=== PATIENT | male | born 1970 | race African-American/Black ===

== ENCOUNTER 2020-09-21 05:32 | Day surgery (SDC) | payer OTHER ==
[~2020-09-21] VITALS: Ht 170.2 cm; Wt 87.1 kg
--- NOTE | ~2020-09-21 | OP ---
PATIENT NAME: CASTRO CUELLO MEDICAL RECORD: [id number] :66 LOCATION:D.OPS ADMISSION DATE: SURGEON: BRYCE MULLER MD DATE OF OPERATION: 09/21/2020 PRINCIPAL DIAGNOSIS: Lipoma of the right posterior back, it measures 13 cm x 16 cm. POSTOPERATIVE DIAGNOSIS: Lipoma of the right posterior back, it measures 13 cm x 16 cm. PROCEDURE: Resection of large lipoma of the right back. SURGEON: Bryce Muller MD AIRBRUSH ARTIST TECHNICAL: None. BLOOD LOSS: Minimal. ANESTHESIA: General. COMPLICATIONS: None. I specifically discussed with the patient the 1 in 10 chance that the lipoma could recur and the chance that the lipoma could actually represent a lipomatous malignancy such as a liposarcoma. DESCRIPTION OF PROCEDURE: The patient was conveyed to the operating room electively on 09/21/2020. General anesthesia was induced by the anesthesia staff. The patient was positioned prone. The back was sterilely prepped and draped. A transverse incision was accomplished over the lipoma. I dissected down to the lipomatous tissue, which was freed up bluntly. I then extirpated the lipoma by squeezing out through the small incision. Some additional connective tissue was excised in a piecemeal fashion in order to prevent the lipoma from recurring. I noted no residual lipomatous tissue within the cavity. Meticulous hemostasis was achieved with electrocautery. I irrigated with normal saline. Marimar was added to the cavity for additional hemostasis. The deep adipose tissue was closed with interrupted 3-0 Vicryl. Subcutaneous adipose tissue was closed with interrupted 3-0 Vicryl. Skin was closed with a running intracuticular 3-0 Vicryl. Dermabond was then applied. The patient was then extubated and conveyed to post-anesthesia care unit where he was in stable condition. There is no need for him to follow up with me in the office unless he develops a complication related to this operative procedure. If he needs to be seen postoperatively, I could see him during one of my GI clinic days out at the half-way. TRANSINT:[id number] Voice Confirmation ID: [id number] DOCUMENT ID: [id number] OPERATIVE REPORT [id number] CUATEBRYCE CHRIS MD CC: AMERICA RUIZ MD [id number] DICTATION DATE: 09/22/20 1056 RAILWAY SWITCH OPERATOR: 09/22/20 1546 [facility] [place] 09/21/20 [id number] [place] [address]
[2020-09-21] MEDS ORDERED: MOBIC7.5 MG PO (05:55)
[2020-09-21] MEDS ORDERED: NORVASC10 MG PO (05:56)
[2020-09-21] MEDS ORDERED: ACETAMINOPHEN500 M1 PO (05:56)
[2020-09-21] MEDS ORDERED: ULTRAM50 MG PO (05:57)
[2020-09-21] MEDS ORDERED: CYMBALTA60 MG PO (05:57)
[2020-09-21] MEDS ORDERED: COREG25 MG PO (05:58)
[2020-09-21] MEDS ORDERED: ZOCOR20 MG PO (05:58)
[2020-09-21] MEDS ORDERED: CHLORTHALIDONE25 MG PO (05:59)
[2020-09-21] MEDS ORDERED: BACLOFEN20 M1 PO (06:01)
[2020-09-21 06:23] LABS: ANION GAP 8.6 mmol/L (8-16); CALCIUM 8.4 mg/dL (8.5-10.1); CARBON DIOXIDE 29.2 mmol/L (21.0-32.0); CREATININE - SERUM 1.2 mg/dL (0.6-1.3); POTASSIUM - SERUM 3.8 mmol/L (3.5-5.1)
[2020-09-21 06:27] VITALS: BP 166/102; Ht 170.2 cm; Wt 87.1 kg
[2020-09-21 06:48] LABS: BASOPHILS 0.2 % (0-2); EOSINOPHILS 2.6 % (0-7); HEMATOCRIT 39.1 % (42.0-54.0); HEMOGLOBIN 13.2 g/dL (13.5-17.5); IMMATURE GRANULOCYTES 0.2 % (0-5); LYMPHOCYTES 35.1 % (15-50); MCH 30.6 pg (26.0-34.0); MCHC 33.8 g/dL (31.0-37.0); MCV 90.5 fL (80.0-100.0); MEAN PLATELET VOLUME 8.2 fL (7.4-10.4); MONOCYTES 6.9 % (2-11); NEUTROPHIL ABS# 3.13 10x3/uL (1.78-5.38); PLATELET COUNT 278 10x3/uL (130-400); RBC 4.32 10x6/uL (4.20-6.10); RDW 12.7 % (11.5-14.5); WBC 5.7 10x3/uL (4.8-10.8)
== END 2020-09-21 13:50 | disposition home or self-care (01) ==
LOC: D.OPS 05:32
PROVIDERS: ATTEND Surgery
DX: D17.1 Benign lipomatous neoplasm of skin and subcutaneous tissue of trunk (principal)